=== PATIENT | female | born 1925 | race Caucasian/White ===

== ENCOUNTER → 2016-04-17 | Outpatient (CLI) | payer OTHER | LOC: LAB 13:30 | DX: A09 Infectious gastroenteritis and colitis, unspecified (principal); I10 Essential (primary) hypertension; D47.1 Chronic myeloproliferative disease; D68.51 Activated protein C resistance; I86.8 Varicose veins of other specified sites; E03.9 Hypothyroidism, unspecified; I27.2 Other secondary pulmonary hypertension | CPT/HCPCS: 87493; 99213; G0463 ==

== ENCOUNTER → 2016-05-13 | Outpatient (CLI) | payer OTHER ==
--- NOTE | 2016-05-13 11:36 | EKG ---
[address] [address] Measurements Intervals [place] Rate: 87 P: AR: 0 QRS: 97 QRSD: 104 T: 39 QT: 379 QTc: 423 Interpretive Statements ATRIAL FIBRILLATION BORDERLINE RIGHT AXIS DEVIATION [QRS AXIS > 90] ABNORMAL RHYTHM ECG Compared to ECG 12/13/2014 14:20:17 No significant changes Electronically Signed On 05-14-16 14:08:44 MST by Lauri Calzada [id number]
[2016-05-13 12:56] LABS: BUN/CREATININE RATIO 23.33 (6-20); CALCIUM 9.4 mg/dL (8.7-10.7); CREATININE 0.9 mg/dL (0.50-1.20); MAGNESIUM 1.9 mg/dL (1.6-2.4); POTASSIUM 4.5 meq/L (3.8-5.2)
[2016-05-13 13:41] LABS: BASOPHILS # (AUTO) 0.05 10*3/UL; BASOPHILS % (AUTO) 0.6 % (0-1); HEMATOCRIT 35.5 % (37.0-47.0); HEMOGLOBIN 11.2 g/dL (12.0-16.0); IMM GRAN % (AUTO) 0.9 % (0-5); IMM GRAN# (AUTO) 0.07 10*3/UL; LYMPHOCYTES # (AUTO) 0.93 10*3/uL; MEAN CORPUSCULAR HEMOGLOBIN 25.2 PG (27-31); MEAN CORPUSCULAR HGB CONC 31.5 g/dL (33-37); MEAN PLATELET VOLUME 10.2 FL (7.4-12.2); MONOCYTES # (AUTO) 0.44 10*3/UL (0.3-0.8); MONOCYTES % (AUTO) 5.7 % (5-15); NEUTROPHILS # (AUTO) 6.02 10*3/UL; NEUTROPHILS % (AUTO) 77.8 % (50-80); RDW COEFFICIENT OF VARIATION 19.8 % (11.5-14.5); RED BLOOD COUNT 4.45 10^6/uL (4.20-5.40); WHITE BLOOD COUNT 7.74 10^3/uL (4.8-10.8)
[2016-05-13 14:24] LABS: PLATELET MORPHOLOGY COMMENT SEE COMMENTS (NORM)
== END ==
LOC: EKG 11:21
DX: I49.9 Cardiac arrhythmia, unspecified (principal); I48.91 Unspecified atrial fibrillation; I10 Essential (primary) hypertension; D47.1 Chronic myeloproliferative disease
CPT/HCPCS: 36415; 80048; 82728; 83540; 83550; 83735; 85025; 93005; 93010

== ENCOUNTER → 2016-06-10 | Outpatient (CLI) | payer OTHER | LOC: MMPC 09:00 | DX: R11.2 Nausea with vomiting, unspecified (principal); I10 Essential (primary) hypertension; D47.3 Essential (hemorrhagic) thrombocythemia; E03.9 Hypothyroidism, unspecified; I27.2 Other secondary pulmonary hypertension; D68.51 Activated protein C resistance; I48.0 Paroxysmal atrial fibrillation | CPT/HCPCS: 99213; G0463 ==

== ENCOUNTER 2016-06-15 15:32 | Emergency (ER) | payer OTHER ==
--- NOTE | 2016-06-15 15:54 | PDOC ---
Gen Adult / Medical Screen HPI - General Chief Complaint: General Medical Stated Complaint: ILL ALL OVER Date Seen by Provider: 06/15/16 Time Seen by Provider: 15:49 Source: POSITIVE: Patient Exam Limitations: POSITIVE: No limitations Nurse's Notes Reviewed & Considered: Yes - Indicators Temperature Between 95 and 101 Degrees: Yes Respirations Between 12 and 20: Yes Blood Pressure Between 100-165 (sys) and 60-100 (george): No (172\125) Pulse Range Between 60-105 (100 for age > 60 years): No (115) Severe Pain (Greater than 5/10 Reported): No Chest or Abdominal Pain: No Inability to Walk: No Pt Reports Active High Risk Cond. (TB/Hepatitis/HIV/Chemo): No Abnormal Mental Status: No - History of Present Illness Initial Comments: This pleasant 89-year-old comes in today with complaints of myalgias, sore throat, stuffy nose, and upset stomach with nausea. She denies any nocturia or dysuria. She does have a headache, abdominal discomfort, denies chest pain shortness of breath no cough. Body Location Affected: REPORTS: Chest, Abdomen Timing: REPORTS: Constant Duration: >24 hours Similar Symptoms Previously: No Recent Care Received: REPORTS: Denies Any Prior Injuries Related to Current Complaint?: No - Patient Home Medications Home Medications: Home Medications Vit A/Vit C/Vit E/Zinc/Copper [Icaps Areds Softgel] 1 each PO BID cap 02/10/13 Estradiol 1 tab PO QD #90 tab 06/08/15 Pantoprazole Sodium [Protonix] 1 tab PO QD PRN #90 tab 07/31/15 Metoprolol Succinate 1 tab PO DAILY #90 tab 08/09/15 Amlodipine Besylate 1 tab PO DAILY #90 tab 10/02/15 Furosemide [Lasix] 1 tab PO 4XW #30 tab 02/18/16 Potassium Chloride 1 tab PO 4XW #30 tab 03/04/16 Tramadol HCl 0.5 tab PO Q4-6H PRN #45 tab 03/11/16 Levothyroxine Sodium 1 tab PO QD #90 tab 05/12/16 Ferrous Sulfate [High Potency Iron] 1 tab PO QOD #30 tab 06/10/16 - Patient Allergies Allergies/Adverse Reactions: Allergies Allergy/AdvReac Type Severity Reaction Status Date / Time ibuprofen Allergy Intermediate ASTHMATIC Verified 06/15/16 16:12 SYMPTOMS metoclopramide HCl Allergy Intermediate SUICIDAL Verified 06/15/16 16:12 [From Reglan] IDEATIONS Past Medical History - heen HEENT History: Cataracts Cardiovascular History: Hypertension, Arrhythmia, Hyperlipidemia Respiratory History: Denies History Gastrointestinal History: GERD, Peptic Ulcer Disease Genitourinary History: Denies History Endocrine History: Denies History Musculoskeletal History: Arthritis, Osteoporosis Neurological History: TIA Blood Disorders: Denies History Psychiatric History: Denies History History of Sexually Transmitted Diseases: No Cancer History: Denies History History of MDRO: No History of Other Communicable Diseases: No Alcohol Use: None Substance Use Type: None Previous Surgical History: Yes Anesthesia Reactions: No Malignant Hyperthermia: No Significant Family History: No pertinent family hx ROS - Limitations ROS Limitations: No Limitations Constitution: REPORTS: Chills, Fever Cardiovascular: REPORTS: Denies Cardiac Symptoms Respiratory: REPORTS: Shortness Of Breath Neurological: REPORTS: Headache Gastrointestinal: REPORTS: Abdominal Pain, Nausea Endocrine: REPORTS: Fatigue Musculoskeletal: REPORTS: Muscle Aches Genitourinary: REPORTS: Denies Symptoms Eyes: REPORTS: Denies Symptoms ENT: REPORTS: Denies Symptoms Skin: REPORTS: Denies Skin Symptoms Lympathic: REPORTS: Denies Lympathic Symptoms Immunologic: POSITIVE: Denies Symptoms Psychiatric: POSITIVE: Denies Psych Symptoms Gen Adult/Medical Screen Exam - General Appearance General Appearance: POSITIVE: Alert, Cooperative, No Acute Distress, No Evidence of Trauma - HEENT HEENT: POSITIVE: Head Inspection Nml, Eyes Inspection Nml, Ears Inspection Nml, Nose Inspection Nml, Oral/Dental Inspect. Nml, Pharynx Inspect. Nml, PERRL, EOMI - Pupils Pupil Size: 4 mm: Bilateral - Neck Neck: POSITIVE: Normal Inspection - Respiratory Respiratory: POSITIVE: No Respiratory Distress, Breath Sounds Normal, Chest Non- Tender - Cardiovascular Cardiovascular: POSITIVE: No Murmur, No Gallop, PMI Normal, Tachycardia, Murmur Murmur: Systolic: Grade 3 - Abdomen Abdomen: Soft: (All Quadrants), Normal Bowel Sounds: (All Quadrants), Denies Tenderness: (All Quadrants) - Back Back: POSITIVE: Normal Inspection - Neurological / Psychological Mental Status: POSITIVE: Mood Normal, Affect Normal Orientation: POSITIVE: Oriented x 3 - Skin Skin: POSITIVE: Normal Color, Warm, Dry, No Rash - Extremities Extremity: Non-Tender: (All Extremities), Normal ROM: (All Extremities), Normal Inspection: (All Extremities) Procedures - Laceration/Wound Repair Did patient have a laceration repair: No Gen Adlt/Medical Scrn Progress - Results Reviewed by me Xrays/CTs/US Reviewed by me: Yes Lab Results Reviewed: Yes Lab Results:: Laboratory Results 06/15/16 06/15/16 Range/Units 15:44 16:02 WBC 12.83 H (4.8-10.8) 10^3/uL RBC 4.83 (4.20-5.40) 10^6/uL Hgb 12.4 (12.0-16.0) g/dL Hct 37.5 (37.0-47.0) % MCV 77.6 L (81-99) FL MCH 25.7 L (27-31) PG MCHC 33.1 (33-37) g/dL RDW Std Deviation 54.8 H (39-50) fL RDW Coeff of Min 19.8 H (11.5-14.5) % Plt Count 553 H (140-350) 10*3/uL MPV 10.0 (7.4-12.2) FL Neutrophils % (Manual) 82 H (50-80) % Band Neutrophils % 6 (0-10) % Lymphocytes % (Manual) 7 L (10-50) % Monocytes % (Manual) 4 (0-12) % Eosinophils % (Manual) 1 (0-8) % Basophils % (Manual) 0 (0-1) % Metamyelocytes % Not Reportable Myelocytes % Not Reportable Promyelocytes % Not Reportable Blast Cells Not Reportable WBC Morphology Comment Normal morphology (NORM) Plt Morphology Comment See comments (NORM) RBC Morph Comment Normal morphology (NORM) Sodium 135 (135-145) meq/L Potassium 4.2 (3.8-5.2) meq/L Chloride 97 L (98-112) meq/L Carbon Dioxide 27 (23-33) meq/L Anion Gap 11 (5-20) BUN 17 (7-22) mg/dL Creatinine 0.7 (0.50-1.20) mg/dL Estimated GFR (>60 ml/min/1.73m(2)) BUN/Creatinine Ratio 24.28 H (6-20) Glucose 101 (78-110) mg/dL Calculated Osmolality 281.0 (267-292) mOsm/kg Lactic Acid 0.9 (0.70-2.10) MMOL/L Calcium 9.8 (8.7-10.7) mg/dL Magnesium 1.7 (1.6-2.4) mg/dL Total Bilirubin 1.3 H (0.3-1.2) mg/dL AST 29 (8-39) IU/L ALT 26 (9-52) IU/L Alkaline Phosphatase 71 (38-126) IU/L Total Protein 7.2 (6.1-8.0) g/dL Albumin 4.3 (3.5-4.8) g/dL Globulin 2.9 (2.50-4.10) g/dL Albumin/Globulin Ratio 1.40 (1.3-2.0) mg/g Ur Collection Type Clean catch urine Urine Color Yellow Urine Clarity Slightly sosa (CLEAR) Urine pH 7.0 (5.0-8.5) Ur Specific [place] 1.015 (1.005-1.030) Urine Protein Trace (NEG) mg/dl Urine Glucose (UA) Negative (NEG) mg/dL Urine Ketones Trace (NEG) Urine Occult Blood Negative (NEG) Urine Nitrate Negative (NEG) Urine Bilirubin Negative (NEG) Urine Urobilinogen 1.0 (0.2) EU/dL Ur Leukocyte Esterase Negative (NEG) Ur Culture Indicated? Culture not set EKG Interpretation:: POSITIVE: Abnormal EKG - Patient's Progress Pain Medication Addressed: POSITIVE: Other (Please Comment) (Atrial fibrillation with an RVR of 107 beats a minute.) Re-Examine Time: 17:43 Re-Examine Time:: 18:37 Status: POSITIVE: Improved MDM / ED Course: Patient was examined, an IV started, blood drawn and sent to lab for studies, chest x-ray was obtained, EKG was obtained. Findings: White count is elevated, EKG shows an atrial fibrillation with rapid ventricular rate of 107 beats a minute per my interpretation area. Influenza is negative. Oxygenation drops and to the 87% range with ambulation and no oxygen. Oxygenation improves rapidly on 2 L nasal cannula. Chest x-ray shows suspicious early and left lung base. Assessment: Early pneumonia. Plan discharge home on azithromycin 500 g daily 2 days. Continue with her home oxygen. She is to return here to emergency department if she runs fevers, developed increasing shortness of breath. - Consult Counseled: POSITIVE: Patient, Family, RE: Lab Results, RE: Radiology Results, RE : DX, RE: Need for F/U Patient Care Time - Estimated PCT Patient Care Time (In Minutes): 30 Vital Signs - Recent Vital Signs Vital Signs: Vital Signs (Last 8 hours) Temp Pulse Resp BP Pulse Ox 06/15/16 18:15 99.2 F 110 H 20 143/64 93 06/15/16 17:31 115 H 155/78 81 06/15/16 15:34 99.6 F 115 H 20 172/125 88 - VS Reviewed Vital Signs Reviewed: Yes Discharge Clinical Impression: Pneumonia Discharge Disposition: Discharged to Home Condition: Stable Patient Instructions Given at Discharge: Pneumonia (ED)
[2016-06-15] MEDS ORDERED: Sodium Chloride 0.9% 1,000 ML PRIMARY IV ONE (15:56)
[2016-06-15] MEDS ORDERED: KETOROLAC 15 MG/1 ML VIAL IVP ONE (15:56)
[2016-06-15] MEDS ORDERED: ONDANSETRON 4 MG/2 ML VIAL IVP ONE (15:56)
[2016-06-15 16:21] LABS: HEMATOCRIT 37.5 % (37.0-47.0); HEMOGLOBIN 12.4 g/dL (12.0-16.0); MEAN CORPUSCULAR HEMOGLOBIN 25.7 PG (27-31); MEAN CORPUSCULAR HGB CONC 33.1 g/dL (33-37); RDW COEFFICIENT OF VARIATION 19.8 % (11.5-14.5); RED BLOOD COUNT 4.83 10^6/uL (4.20-5.40); WHITE BLOOD COUNT 12.83 10^3/uL (4.8-10.8)
[2016-06-15 16:37] LABS: BILIRUBIN,TOTAL 1.3 mg/dL (0.3-1.2); BUN/CREATININE RATIO 24.28 (6-20); CALCIUM 9.8 mg/dL (8.7-10.7); CREATININE 0.7 mg/dL (0.50-1.20); LACTATE 0.9 MMOL/L (0.70-2.10); MAGNESIUM 1.7 mg/dL (1.6-2.4); POTASSIUM 4.2 meq/L (3.8-5.2); TOTAL PROTEIN 7.2 g/dL (6.1-8.0)
[2016-06-15 16:41] LABS: BAND NEUTROPHILS % 6 % (0-10); BASOPHILS % (MANUAL) 0 % (0-1); EOSINOPHILS % (MANUAL) 1 % (0-8); LYMPHOCYTES % (MANUAL) 7 % (10-50); MONOCYTES % (MANUAL) 4 % (0-12); NEUTROPHILS % (MANUAL) 82 % (50-80); PLATELET MORPHOLOGY COMMENT SEE COMMENTS (NORM)
[2016-06-15 16:51] LABS: BILIRUBIN,URINE NEGATIVE (NEG); CLARITY,URINE Slightly Clo (CLEAR); GLUCOSE, URINE (UA) NEGATIVE (NEG); LEUKOCYTE ESTERASE ,URINE NEGATIVE (NEG); NITRATE,URINE NEGATIVE (NEG); OCCULT BLOOD,URINE NEGATIVE (NEG); PROTEIN,URINE TRACE mg/dl (NEG)
[2016-06-15 16:59] LABS: URINE SAMPLE TYPE CLEAN CATCH URINE
[2016-06-15] MEDS ORDERED: ALBUTEROL SULFATE 2.5 MG/3 ML NEB ONE (17:28)
--- NOTE | 2016-06-15 17:40 | EKG ---
[place] [address] [place] [address] Measurements Intervals [place] Rate: 107 P: MD: 0 QRS: 96 QRSD: 96 T: 59 QT: 346 QTc: 409 Interpretive Statements ATRIAL FIBRILLATION WITH RAPID VENTRICULAR RESPONSE BORDERLINE RIGHT AXIS DEVIATION LOW QRS VOLTAGE IN EXTREMITY LEADS ABNORMAL RHYTHM ECG Compared to ECG 05/13/2016 11:39:39 Low QRS voltage now present Electronically Signed On 06-16-16 10:25:46 MST by Lauri Calzada [id number]
--- NOTE | 2016-06-15 17:59 | DI ---
HISTORY: Fever. COMPARISON: None available. FINDINGS: Borderline cardiomegaly is noted with atheromatous changes of the dorsal aorta. There yefri ears to be mild pulmonary vascular congestion in both lower lung bull with pleural effusion and/or pleural thickening in both lung bases and suspicious early infiltrate in the left lung base. The jessie g bull are otherwise essentially clear. IMPRESSION: 1. Borderline cardiomegaly is noted with atheromatous changes of the dorsal aorta. 2. There appears to be mild pulmonary vascular congestion in both lower lung bull with pleural effu audrey and/or pleural thickening in both lung bases and suspicious early infiltrate in the left lung ba se. Clinical correlation is requested. NOTIFICATION: The above findings and recommendations were phoned to Beth Pfeiffer in the ER Depar tment on 06/15/2016 at 08:20 PM EST.
[2016-06-15] MEDS ORDERED: AZITHROMYCIN 250 MG TABLET PO ONE (18:01)
[2016-06-15 18:20] VITALS: RESP 20; TEMP 99.2
== END 2016-06-15 18:47 | disposition home or self-care (01) ==
LOC: ER 15:32
DX: J18.9 Pneumonia, unspecified organism (principal); R10.84 Generalized abdominal pain; R50.9 Fever, unspecified; R11.0 Nausea; R06.02 Shortness of breath
CPT/HCPCS: 36415; 71020; 80053; 81003; 83605; 83735; 84443; 84481; 85007; 87040; 87802; 87804; 93005; 93010; 94640; 96374; 96375; 99284; J1885; J2405; J7030

== ENCOUNTER 2016-06-19 14:03 | Inpatient (IN) | payer OTHER ==
[2016-06-19] MEDS ORDERED: ONDANSETRON 4 MG/2 ML VIAL IVP PRN (14:54)
[2016-06-19] MEDS ORDERED: LIDOCAINE W/ SODIUM BICARB 0.5 ML SYR SUBD PRN (14:54)
[2016-06-19] MEDS ORDERED: HYDROcodone-APAP 5 MG -325 MG TABLET PO PRN (14:54)
[2016-06-19 14:57] LABS: HEMATOCRIT 38.6 % (37.0-47.0); HEMOGLOBIN 12.6 g/dL (12.0-16.0); MEAN CORPUSCULAR HEMOGLOBIN 25.3 PG (27-31); MEAN CORPUSCULAR HGB CONC 32.6 g/dL (33-37); MEAN PLATELET VOLUME 9.7 FL (7.4-12.2); RED BLOOD COUNT 4.98 10^6/uL (4.20-5.40)
[2016-06-19 15:07] LABS: CALCIUM 9.4 mg/dL (8.7-10.7); MAGNESIUM 1.7 mg/dL (1.6-2.4); SERUM ALBUMIN 4.4 g/dL (3.5-4.8)
--- NOTE | 2016-06-19 15:45 | EKG ---
[address] [address] Measurements Intervals [place] Rate: 106 P: CT: 0 QRS: -1 QRSD: 98 T: 53 QT: 337 QTc: 399 Interpretive Statements ATRIAL FIBRILLATION WITH RAPID VENTRICULAR RESPONSE ABNORMAL RHYTHM ECG Compared to ECG 06/15/2016 17:37:18 No significant changes Electronically Signed On 06-19-16 17:11:57 MST by Lauri Calzada [id number]
[2016-06-19] MEDS ORDERED: Magnesium Sulfate 2gm (Premix) 2 GM in Premix 1 BAG IV ONE (16:38)
--- NOTE | 2016-06-19 16:43 | PDOC ---
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 Was feeling short of breath with generalized malaise last Thursday she was seen in the ER diagnosed with possible left lower lobe pneumonia was given Zithromax and Tamiflu. Patient did not improve continue to be shortness have shortness of breath went to see her primary care physician today after he saw her I received a call from Dr. Ma asking me to possibly do a direct admit for this patient. She has not been feeling well for 2 or 3 days she has shortness of breath her abdomen is distended feels very weak all heart rates and elevated. She was found to be in A. fib RVR CT scan of her abdomen and pelvis and chest revealed the 2 moderate to large bilateral pleural effusions and right heart failure with a large right heart. I did look up an old echo was 2 years ago and she has severe pulmonary hypertension as well as diastolic dysfunction. Past Medical History Medical History: Osteoporosis. Benign hypertension. Essential thrombocythemia. Factor V Leiden mutation. Raynaud's syndrome. Transient ischemic attack. Age-related macular degeneration. Gastroesophageal reflux disease. Laryngitis due to reflux. MIGRAINE AURA NO HEADACHE. Family History. Last reviewed 04/12/16 LILY FOY Family History: Reviewed an Not Pertinent (Essential hypertension (brother, poorly controlled, and likely cause of his recurrent CVAs) Depression (brother committed suicide) Cerebrovascular accident (brother had multiple) Pancreatic cancer (brother, d. 61.)) Tobacco Use: Never Smoker Substance Use Type: None Alcohol Use: None Medication / Allergies Home Medications: Home Medications Medication Instructions Recorded Confirmed Type Vit A/Vit C/Vit E/Zinc/Copper 1 each PO BID cap 02/10/13 06/15/16 History [Icaps Areds Softgel] Estradiol 1 tab PO QD #90 tab 06/08/15 06/15/16 Clinic Pantoprazole Sodium [Protonix] 1 tab PO QD PRN #90 tab 07/31/15 06/15/16 Clinic Metoprolol Succinate 1 tab PO DAILY #90 tab 08/09/15 06/15/16 Clinic Amlodipine Besylate 1 tab PO DAILY #90 tab 10/02/15 06/15/16 Clinic Furosemide [Lasix] 1 tab PO 4XW #30 tab 02/18/16 06/15/16 [facility] Potassium Chloride 1 tab PO 4XW #30 tab 03/04/16 06/15/16 Clinic Tramadol HCl 0.5 tab PO Q4-6H PRN #45 tab 03/11/16 06/15/16 [facility] Levothyroxine Sodium 1 tab PO QD #90 tab 05/12/16 06/15/16 [facility] Ferrous Sulfate [High Potency Iron] 1 tab PO QOD #30 tab 06/10/16 06/15/16 [facility] Allergies/Adverse Reactions: Allergies Allergy/AdvReac Type Severity Reaction Status Date / Time ibuprofen Allergy Intermediate ASTHMATIC Unverified 06/19/16 15:04 SYMPTOMS metoclopramide HCl Allergy Intermediate SUICIDAL Unverified 06/19/16 15:04 [From Reglan] IDEATIONS Review of Systems - Review of Systems All Systems: Reviewed & No Additional Complaints Except as Stated - Respiratory Respiratory: REPORTS: Cough, Dyspnea At Rest, Dyspnea with Exertion - Cardiovascular Cardiovascular: REPORTS: Palpitations, Paroxysmal Nocturnal Dyspnea - Gastrointestinal Gastrointestinal / Abdominal: REPORTS: Bloating - Genitourinary Genitourinary: REPORTS: Negative System Review - Musculoskeletal Musculoskeletal: DENIES: Negative System Review, Back Pain, Neck Pain, Swelling , Calf Pain, Muscle Pain, Cramping, Joint Pain - Hands, Joint Pain - Elbows, Joint Pain - Shoulders, Joint Pain - Hips, Joint Pain - Knees, Joint Pain - Feet , AM Stiffness, Other, See HPI - Neurological Neurologic: REPORTS: Weakness. DENIES: Numbness/Paresthesia, Tremors, Dizziness , Confusion Exam - Vitals Vital Signs: Vital Signs Temperature 97.9 F Temperature Source Oral Pulse Rate [Apical] 112 Pulse Rate [Pulse Oximeter] 110 Respiratory Rate 24 Blood Pressure [Right Arm] 152/74 Pulse Ox 92 Oxygen Delivery Method Room Air Height 5 ft 2 in Weight 53.615 kg - General General Appearance: POSITIVE: No Acute Distress, Cooperative - Head Head Exam: POSITIVE: Normal Inspection, Normocephalic, Atraumatic - Eye Eye Exam: POSITIVE: Normal Appearance, PERRL, EOMI - ENT ENT Exam: POSITIVE: Normal Exam - Neck Neck Exam: POSITIVE: Normal Inspection, Full ROM, No Tenderness - Respiratory Additional Respiratory Exam Details: Left lower lobe bronchi decreased breath sounds bilaterally - Cardiovascular Cardiovascular Exam: POSITIVE: Irregular Rhythm Additional Cardiovascular Details: Gen. fibrillation irregularly irregular - GI/Abdominal GI/Abdominal Exam: POSITIVE: Soft, Distended - Extremities Extremities Exam: POSITIVE: Normal Capillary Refill, No Clubbing Present, No Edema Present - Neurological Neurological Exam: POSITIVE: Alert, Oriented x 3, CN II-XII Intact, No Facial Droop, Speech Intact / Clear - Psychiatric Psychiatric Exam: POSITIVE: Normal Affect, Normal Mood Results - Labs CBC and BMP: 06/19/16 14:52 06/19/16 14:52 Labs - Last 24 Hours: Laboratory Results 06/19/16 Range/Units 14:52 WBC 11.19 H (4.8-10.8) 10^3/uL RBC 4.98 (4.20-5.40) 10^6/uL Hgb 12.6 (12.0-16.0) g/dL Hct 38.6 (37.0-47.0) % MCV 77.5 L (81-99) FL MCH 25.3 L (27-31) PG MCHC 32.6 L (33-37) g/dL RDW Std Deviation 55.6 H (39-50) fL RDW Coeff of Min 19.9 H (11.5-14.5) % Plt Count 640 H (140-350) 10*3/uL MPV 9.7 (7.4-12.2) FL Sodium 135 (135-145) meq/L Potassium 3.6 L (3.8-5.2) meq/L Chloride 96 L (98-112) meq/L Carbon Dioxide 29 (23-33) meq/L Anion Gap 10 (5-20) BUN 16 (7-22) mg/dL Creatinine 0.8 (0.50-1.20) mg/dL Estimated GFR (>60 ml/min/1.73m(2)) BUN/Creatinine Ratio 20.00 (6-20) Glucose 108 (78-110) mg/dL Calculated Osmolality 281.0 (267-292) mOsm/kg Calcium 9.4 (8.7-10.7) mg/dL Magnesium 1.7 (1.6-2.4) mg/dL Total Bilirubin 0.7 (0.3-1.2) mg/dL AST 31 (8-39) IU/L ALT 26 (9-52) IU/L Alkaline Phosphatase 83 (38-126) IU/L Troponin I 0.010 (< 0.040) ng/mL Total Protein 7.5 (6.1-8.0) g/dL Albumin 4.4 (3.5-4.8) g/dL Globulin 3.1 (2.50-4.10) g/dL Albumin/Globulin Ratio 1.40 (1.3-2.0) mg/g Assessment and Plan - Patient Problems (1) Atrial fibrillation Current Visit: Yes Status: Acute Comment: I will start Toprol XL 50 mg I will also anticoagulate with the by mouth blood thinners I discussed different medications we will do Eliquis she agrees I explained that the risk of stroke without it (2) Elevated WBC count Current Visit: Yes Status: Acute Comment: Secondary to left lower lobe pneumonia start Levaquin (3) Low mean corpuscular volume (MCV) Current Visit: Yes Status: Acute Comment: Check iron panel (4) Hypokalemia Current Visit: Yes Status: Acute Comment: Replace (5) Pulmonary HTN Current Visit: Yes Status: Acute Comment: On echo and CT scan with bilateral pleural effusions (6) Right heart failure Current Visit: Yes Status: Acute Comment: IV Lasix 40 twice a day and start Amaral for accurate measurements
[2016-06-19] MEDS: Levofloxacin 750mg (Premix) 750 MG in Dextrose 1 BAG IV SCH (17:07)
--- NOTE | 2016-06-19 17:48 | DI ---
CT CHEST SCAN WITH IV CONTRAST, 06/19/2016 2:33 PM : Clinical History: Dyspnea. Previous Exam: None at this facility. Scans are performed from the base of the neck to the lower lung bases with IV contrast. 65 ml of Isov ue 300 was injected IV. Sagittal and coronal images using non MIPS and MIPS technique are generated. The base of the neck and thoracic inlet are normal. There are no abnormal axillary, supraclavicular, mediastinal, or hilar nodes. There is dilatation of the right atrium and the right ventricle and the right ventricle is actually larger than the left ventricle. There is thinning of the myocardium invol ving the anterior portion of the septum distally and the apicoseptal, the apicolateral, and the anter oapical segments. The left intraocular apex has a bulbous configuration and there is low-density tiss ue within the myocardium associated with thinning. Toward the base, the left ventricular myocardium i s thickened. The ascending and descending aorta are normal. There is marked pulmonary arterial hypert ension without evidence of pulmonary emboli or pulmonary infarction. There is left lower lobe atelect asis, but pneumonia cannot entirely be excluded. There are moderate bilateral pleural effusions with multiple calcifications in both lungs ranging up to 10 mm in diameter as well as calcifications in th e mediastinum and both tima as well as in the spleen. These calcifications are consistent with previo us exposure to either TB or histoplasmosis. READIN. There is right heart dilatation with marked pulmonary arterial hypertension and bilateral moderat e pleural effusions. The left ventricle is normal in size but there are are changes suggesting a prev ious myocardial infarction involving the distal third of the LAD. The proximal half of the left ventr icular myocardium is thickened suggesting left ventricular hypertrophy. 2. There is left lower lobe atelectasis versus pneumonia. 3. Pulmonary, mediastinal, and hilar calcifications with calcifications of the spleen indicating adama or exposure to either TB or histoplasmosis.
--- NOTE | 2016-06-19 18:00 | DI ---
CT ABDOMEN SCAN WITH IV CONTRAST, 06/19/2016 2:33 PM : Clinical History: Abdominal pain. This history was provided to me by the attending hospitalist. Previous Exam: 10/26/2008. Scans are performed from the lower lung bases through the liver and kidneys with IV contrast. This is the same bolus of contrast used for the CT scan of the chest. There are bilateral pleural effusions, slightly larger on the left side than the right. There is left lower lobe atelectasis versus pneumonia. The liver is normal. The gallbladder is grossly normal. Bot h adrenal glands and pancreas are normal. There is moderate to moderately severe splenomegaly without evidence of splenic masses. There are numerous punctate calcifications within the spleen indicating previous exposure to either TB or histoplasmosis. Both kidneys are normal in size, shape, position an d contour. There is no hydronephrosis or hydroureter. No renal or ureteral calculi are present. There are no abnormal retrocrural or periaortic nodes. No ascites is present. READIN. Moderate to moderately severe splenomegaly with punctate calcifications indicating prior exposure to either TB or histoplasmosis. 2. The remainder of the exam is normal. CT PELVIS SCAN WITH IV CONTRAST, 06/19/2016 2:33 PM: Clinical History: See above. Previous Exam: 10/26/2008. Scans are performed from just superior to the umbilicus to the symphysis pubis with IV contrast. This is the same bolus of contrast used for the CT scans of the abdomen. Scans through the lower abdomen and pelvis show no masses or abnormal fluid collections. There is no adenopathy. The appendix is not visualized but there is no inflammatory mass either in the cecal tip or in the right lower quadrant. The small bowel, terminal ileum, and ileocecal valve are normal. The colon is also normal. There are no hernias. The patient is status post hysterectomy and bilateral cheri pingo-oophorectomy. READING: Normal CT scan of the pelvis.
[2016-06-19] MEDS ORDERED: FUROSEMIDE 10 MG/1 ML - 4 ML ONE (18:26)
[2016-06-19] MEDS: FUROSEMIDE 10 MG/1 ML - 2 ML VIAL IVP SCH (18:28)
[2016-06-19] MEDS: FUROSEMIDE 10 MG/1 ML - 4 ML IVP SCH (18:39)
[2016-06-19] MEDS: BISACODYL 5 MG TABLET PO PRN (21:25)
[2016-06-19] MEDS: Apixaban 5 MG TABLET PO SCH (21:25)
[2016-06-19] MEDS: traMADol 50 MG TABLET PO PRN (22:27)
[2016-06-19] MEDS ORDERED: Pantoprazole Inj 40 MG in Normal Saline Flush 10 ML IVP ONE (22:58)
[2016-06-19] MEDS: ONDANSETRON 4 MG/2 ML VIAL IVP PRN (23:11)
[2016-06-19] MEDS: NORMAL SALINE 10 ML SYRINGE FLUSH IVP PRN (23:12)
[2016-06-19] MEDS: LORazepam 2 MG/1 ML VIAL IVP PRN (23:13)
[2016-06-20 06:18] LABS: BASOPHILS # (AUTO) 0.12 10*3/UL; BASOPHILS % (AUTO) 1.3 % (0-1); EOSINOPHILS # (AUTO) 0.23 10*3/UL; EOSINOPHILS % (AUTO) 2.5 % (0-8); HEMATOCRIT 33.9 % (37.0-47.0); HEMOGLOBIN 11.2 g/dL (12.0-16.0); LYMPHOCYTES # (AUTO) 1.13 10*3/uL; MEAN CORPUSCULAR HEMOGLOBIN 26.1 PG (27-31); MEAN PLATELET VOLUME 9.9 FL (7.4-12.2); MONOCYTES # (AUTO) 0.79 10*3/UL (0.3-0.8); MONOCYTES % (AUTO) 8.6 % (5-15); NEUTROPHILS # (AUTO) 6.77 10*3/UL; NEUTROPHILS % (AUTO) 73.9 % (50-80); RED BLOOD COUNT 4.29 10^6/uL (4.20-5.40)
[2016-06-20 06:28] LABS: PLATELET MORPHOLOGY COMMENT NORMAL MORPHOLOGY (NORM); RBC MORPHOLOGY COMMENT NORMAL MORPHOLOGY (NORM); WBC MORPHOLOGY COMMENT NORMAL MORPHOLOGY (NORM)
[2016-06-20 06:30] LABS: BUN/CREATININE RATIO 18.57 (6-20); CALCIUM 8.2 mg/dL (8.7-10.7); SERUM ALBUMIN 3.4 g/dL (3.5-4.8)
[2016-06-20] MEDS: FUROSEMIDE 10 MG/1 ML - 4 ML IVP SCH ×2 (06:48→12:26)
[2016-06-20] MEDS ORDERED: FUROSEMIDE 10 MG/1 ML - 4 ML IVP SCH (07:00)
[2016-06-20] MEDS ORDERED: METOPROLOL SUCCINATE 50 MG SR 24H TABLET PO SCH (09:00)
[2016-06-20] MEDS: METOPROLOL SUCCINATE 50 MG SR 24H TABLET PO SCH (09:22)
[2016-06-20] MEDS: Apixaban 5 MG TABLET PO SCH ×2 (09:23→20:47)
[2016-06-20] MEDS: Pantoprazole Inj 40 MG in Normal Saline Flush 10 ML IVP SCH (09:23)
--- NOTE | 2016-06-20 10:51 | PDOC(PROG) ---
Interval History: Patient is doing much better today less short of breath she had a good night's sleep last night did have some blood in the [place] most likely secondary to her blood tear that she received last night Objective : Data - Labs CBC and BMP: 06/20/16 06:10 06/20/16 06:10 Labs - Last 24 Hours: Laboratory Results 06/19/16 06/19/16 06/20/16 Range/Units 14:52 16:49 06:10 WBC 11.19 H 9.17 (4.8-10.8) 10^3/uL RBC 4.98 4.29 (4.20-5.40) 10^6/uL Hgb 12.6 11.2 L (12.0-16.0) g/dL Hct 38.6 33.9 L (37.0-47.0) % MCV 77.5 L 79.0 L (81-99) FL MCH 25.3 L 26.1 L (27-31) PG MCHC 32.6 L 33.0 (33-37) g/dL RDW Std Deviation 55.6 H 55.2 H (39-50) fL RDW Coeff of Min 19.9 H 19.7 H (11.5-14.5) % Plt Count 640 H 462 H (140-350) 10*3/uL MPV 9.7 9.9 (7.4-12.2) FL Immature Gran % (Auto) 1.4 (0-5) % Neut % (Auto) 73.9 (50-80) % Lymph % (Auto) 12.3 (10-50) % [place] % (Auto) 8.6 (5-15) % Eos % (Auto) 2.5 (0-8) % Baso % (Auto) 1.3 H (0-1) % Immature Gran # (Auto) 0.13 10*3/UL Neut # (Auto) 6.77 10*3/UL Lymph # (Auto) 1.13 10*3/uL [place] # (Auto) 0.79 (0.3-0.8) 10*3/UL Eos # (Auto) 0.23 10*3/UL Baso # (Auto) 0.12 10*3/UL WBC Morphology Comment Normal morphology (NORM) Plt Morphology Comment Normal morphology (NORM) RBC Morph Comment Normal morphology (NORM) Sodium 135 134 L (135-145) meq/L Potassium 3.6 L 4.1 (3.8-5.2) meq/L Chloride 96 L 98 (98-112) meq/L Carbon Dioxide 29 29 (23-33) meq/L Anion Gap 10 7 (5-20) BUN 16 13 (7-22) mg/dL Creatinine 0.8 0.7 (0.50-1.20) mg/dL Estimated GFR (>60 ml/min/1.73m(2)) BUN/Creatinine Ratio 20.00 18.57 (6-20) Glucose 108 83 (78-110) mg/dL Calculated Osmolality 281.0 276.0 (267-292) mOsm/kg Calcium 9.4 8.2 L (8.7-10.7) mg/dL Magnesium 1.7 (1.6-2.4) mg/dL Total Bilirubin 0.7 0.6 (0.3-1.2) mg/dL AST 31 24 (8-39) IU/L ALT 26 25 (9-52) IU/L Alkaline Phosphatase 83 67 (38-126) IU/L Troponin I 0.010 (< 0.040) ng/mL NT-Pro-B Natriuret Pep 3140 H (0-450) PG/ML Total Protein 7.5 6.0 L (6.1-8.0) g/dL Albumin 4.4 3.4 L (3.5-4.8) g/dL Globulin 3.1 2.6 (2.50-4.10) g/dL Albumin/Globulin Ratio 1.40 1.30 (1.3-2.0) mg/g TSH 2.74 (0.2700-4.2000) uIU/mL Objective : Exam - General General Appearance: Cooperative - Neck Neck Exam: Normal Inspection, Full ROM - Respiratory Respiratory Exam: Clear to Auscultation - Bilaterally, Breathing Non Labored, Normal To Percussion - Cardiovascular Cardiovascular Exam: RRR, No Murmur, No Clicks, No Gallops, No Rubs - GI/Abdominal GI/Abdominal Exam: Non Tender, Non Distended, Soft - Extremities Extremities Exam: Normal Inspection, No Clubbing Present, No Edema Present Assessment and Plan - Patient Problems (1) Atrial fibrillation Current Visit: Yes Status: Acute Comment: Continue beta keren rate controlled at this time (2) Elevated WBC count Current Visit: Yes Status: Acute Comment: Improved normalized most likely from her pneumonia (3) Low mean corpuscular volume (MCV) Current Visit: Yes Status: Acute Comment: Check iron levels and B12 (4) Hypokalemia Current Visit: Yes Status: Acute Comment: Replace (5) Pulmonary HTN Current Visit: Yes Status: Acute Comment: On echo 2 years ago echo was repeated this morning (6) Right heart failure Current Visit: Yes Status: Acute Comment: Continue IV Lasix with diuresis so far patient is improving (7) Pneumonia Current Visit: No Status: Acute Comment: IV Levaquin
[2016-06-20] MEDS: Levofloxacin 750mg (Premix) 750 MG in Dextrose 1 BAG IV SCH (16:01)
[2016-06-20] MEDS: LORazepam 2 MG/1 ML VIAL IVP PRN (20:47)
[2016-06-21 05:38] LABS: BASOPHILS # (AUTO) 0.07 10*3/UL; BASOPHILS % (AUTO) 0.7 % (0-1); EOSINOPHILS # (AUTO) 0.22 10*3/UL; EOSINOPHILS % (AUTO) 2.2 % (0-8); HEMATOCRIT 34.7 % (37.0-47.0); HEMOGLOBIN 11.4 g/dL (12.0-16.0); LYMPHOCYTES # (AUTO) 1.46 10*3/uL; MEAN CORPUSCULAR HEMOGLOBIN 25.5 PG (27-31); MEAN CORPUSCULAR HGB CONC 32.9 g/dL (33-37); MONOCYTES # (AUTO) 0.72 10*3/UL (0.3-0.8); MONOCYTES % (AUTO) 7.4 % (5-15); NEUTROPHILS # (AUTO) 7.14 10*3/UL; RED BLOOD COUNT 4.47 10^6/uL (4.20-5.40)
[2016-06-21 05:42] LABS: PLATELET MORPHOLOGY COMMENT NORMAL MORPHOLOGY (NORM); RBC MORPHOLOGY COMMENT NORMAL MORPHOLOGY (NORM); WBC MORPHOLOGY COMMENT NORMAL MORPHOLOGY (NORM)
[2016-06-21 05:47] LABS: BUN/CREATININE RATIO 22.5 (6-20); CALCIUM 8.1 mg/dL (8.7-10.7); SERUM ALBUMIN 3.3 g/dL (3.5-4.8)
[2016-06-21] MEDS: NORMAL SALINE 10 ML SYRINGE FLUSH IVP PRN ×4 (07:11→17:45)
[2016-06-21] MEDS: FUROSEMIDE 10 MG/1 ML - 4 ML IVP SCH (07:11)
[2016-06-21] MEDS: POTASSIUM CHLORIDE 20 MEQ TAB PO SCH ×2 (09:50→17:44)
[2016-06-21] MEDS: METOPROLOL SUCCINATE 50 MG SR 24H TABLET PO SCH (09:50)
[2016-06-21] MEDS: Pantoprazole Inj 40 MG in Normal Saline Flush 10 ML IVP SCH (09:50)
[2016-06-21] MEDS: Apixaban 5 MG TABLET PO SCH ×2 (09:50→21:14)
--- NOTE | 2016-06-21 10:13 | OT.PROG ---
Progress Note Progress Note: S: pt was in her chair upon arrival. pt reported that she does not want a catheter although she is on lasix and thats why she has it. O: pt was able to don shorts with assistance for the catheter. pt ambulated down to therapy where she completed nustep for 15 minutes, 5 minutes on arm bike while standing. pt required 1 liter oxygen to stay above 90%. A: at this time pt was ready to go back to her room. pt is doing well, she is very active normally and is bored being in the hospital. P: cont to increase pts activity tolerance to return home
--- NOTE | 2016-06-21 11:14 | DI ---
HISTORY: Bilateral pleural effusions and pneumonia. TECHNIQUE: CT images were obtained through the chest without contrast. FINDINGS: There are large bilateral pleural effusions. There is an infiltrate in the right middle l obe. Calcified granulomas are identified. There are calcified hilar lymph nodes. There is cardiomegaly. Multiple peripheral vascular calcifications and coronary artery calcification s are demonstrated. IMPRESSION: 1. Large bilateral pleural effusions. 2. Single vague airspace disease in the right upper lobe may represent a resolving pneumonia. NOTIFICATION: The above findings were phoned to Katarzyna Kramer in the ER Department on 06/21/2016 at 1: 18pm EST.
--- NOTE | 2016-06-21 11:42 | DI ---
MODIFIED ESOPHAGRAM, 06/20/2016 12:19 PM : Clinical History: Dysphagia. Previous Exam: None at this facility. A "time out" session was performed to verify the patient's name and date of prior to initiating this procedure. This examination is performed in conjunction with Occupational Therapy to evaluate t he patient's swallowing function. Different texture grades of barium impregnated substances were offe red to the patient, ranging from thin liquids to thick liquids to solids. Please see the occupational therapist's report. Deglutition is normal and the esophagus strips well. There is no evidence of aspiration while swallow ing. There is no pooling of material in the pyriform sinuses. There is no Zenker's diverticulum. Spot films of the esophagus have the appearance of narrowing at the level of C5-6 that is not related to the cricopharyngeus muscle. However, when the patient does take a larger bolus of either solid or liq uids, the appearance of the esophagus in this location is normal. The remainder of the esophagus is n ormal. With the patient in the supine position, there is no spontaneous reflux noted. There is no ref lux with the water siphon test. READIN. The patient was able to swallow barium impregnated thick liquids to solid foods. Please see the O ccupational Therapist's report. 2. The esophagus is normal. There is no evidence of esophagitis, ulcerations, or strictures. There i s no hiatal hernia. No observable or demonstrable reflux was noted.
--- NOTE | 2016-06-21 12:46 | PDOC(PROG) ---
Interval History: Patient is doing a little better with her respirations and overall status she is less short of breath has no other complaints other than she wants to go back to work Objective : Data - Labs CBC and BMP: 06/21/16 04:52 06/21/16 04:52 Labs - Last 24 Hours: Laboratory Results 06/21/16 Range/Units 04:52 WBC 9.79 (4.8-10.8) 10^3/uL RBC 4.47 (4.20-5.40) 10^6/uL Hgb 11.4 L (12.0-16.0) g/dL Hct 34.7 L (37.0-47.0) % MCV 77.6 L (81-99) FL MCH 25.5 L (27-31) PG MCHC 32.9 L (33-37) g/dL RDW Std Deviation 53.0 H (39-50) fL RDW Coeff of Min 19.3 H (11.5-14.5) % Plt Count 496 H (140-350) 10*3/uL MPV 10.0 (7.4-12.2) FL Immature Gran % (Auto) 1.8 (0-5) % Neut % (Auto) 73.0 (50-80) % Lymph % (Auto) 14.9 (10-50) % [place] % (Auto) 7.4 (5-15) % Eos % (Auto) 2.2 (0-8) % Baso % (Auto) 0.7 (0-1) % Immature Gran # (Auto) 0.18 10*3/UL Neut # (Auto) 7.14 10*3/UL Lymph # (Auto) 1.46 10*3/uL [place] # (Auto) 0.72 (0.3-0.8) 10*3/UL Eos # (Auto) 0.22 10*3/UL Baso # (Auto) 0.07 10*3/UL WBC Morphology Comment Normal morphology (NORM) Plt Morphology Comment Normal morphology (NORM) RBC Morph Comment Normal morphology (NORM) Sodium 132 L (135-145) meq/L Potassium 3.7 L (3.8-5.2) meq/L Chloride 97 L (98-112) meq/L Carbon Dioxide 30 (23-33) meq/L Anion Gap 5 (5-20) BUN 18 (7-22) mg/dL Creatinine 0.8 (0.50-1.20) mg/dL Estimated GFR (>60 ml/min/1.73m(2)) BUN/Creatinine Ratio 22.50 H (6-20) Glucose 81 (78-110) mg/dL Calculated Osmolality 274.0 (267-292) mOsm/kg Calcium 8.1 L (8.7-10.7) mg/dL Magnesium 2.0 (1.6-2.4) mg/dL Total Bilirubin 0.6 (0.3-1.2) mg/dL AST 24 (8-39) IU/L ALT 23 (9-52) IU/L Alkaline Phosphatase 63 (38-126) IU/L Total Protein 5.9 L (6.1-8.0) g/dL Albumin 3.3 L (3.5-4.8) g/dL Globulin 2.6 (2.50-4.10) g/dL Albumin/Globulin Ratio 1.20 L (1.3-2.0) mg/g Objective : Exam - General General Appearance: No Acute Distress, Cooperative - Respiratory Respiratory Exam: Clear to Auscultation - Bilaterally, Decreased Breath Sounds - Cardiovascular Cardiovascular Exam: RRR, No Murmur, No Clicks, No Gallops - GI/Abdominal GI/Abdominal Exam: Non Distended, Soft Assessment and Plan - Patient Problems (1) Atrial fibrillation Current Visit: Yes Status: Acute Comment: Rate controlled at present time on Eliquis urine cleared up (2) Elevated WBC count Current Visit: Yes Status: Acute Comment: Resolved (3) Low mean corpuscular volume (MCV) Current Visit: Yes Status: Acute Comment: On iron and B12 (4) Hypokalemia Current Visit: Yes Status: Acute Comment: Replacing (5) Pulmonary HTN Current Visit: Yes Status: Acute Comment: On echo this is a cause of her right heart failure explained to this in detail to family members in the room (6) Right heart failure Current Visit: Yes Status: Acute Comment: Patient has bilateral pleural effusions we're diuresing her aggressively for her right-sided heart failure she has improved but will need more diuresis at this point we will switch to Lasix drip (7) Pneumonia Current Visit: No Status: Acute Comment: Continue antibiotics improving
[2016-06-21] MEDS: Levofloxacin 750mg (Premix) 750 MG in Dextrose 1 BAG IV SCH (17:44)
[2016-06-21] MEDS: Zolpidem Tab 5 MG TAB PO PRN (21:18)
[2016-06-21] MEDS ORDERED: CYANOCOBALAMIN 1000 MCG/1 ML VIAL IM ONE (21:58)
[2016-06-22] MEDS: POTASSIUM CHLORIDE 20 MEQ TAB PO SCH ×2 (06:40→17:53)
[2016-06-22] MEDS: Apixaban 5 MG TABLET PO SCH ×2 (08:48→20:24)
[2016-06-22] MEDS: METOPROLOL SUCCINATE 50 MG SR 24H TABLET PO SCH (08:48)
[2016-06-22] MEDS: Pantoprazole Inj 40 MG in Normal Saline Flush 10 ML IVP SCH (08:48)
[2016-06-22] MEDS ORDERED: METOPROLOL SUCCINATE 25 MG SR 24H TABLET PO SCH ×2 (09:00→17:35)
[2016-06-22 11:00] LABS: HEMATOCRIT 38.7 % (37.0-47.0); MEAN CORPUSCULAR HEMOGLOBIN 25.6 PG (27-31); MEAN CORPUSCULAR HGB CONC 33.6 g/dL (33-37); MEAN PLATELET VOLUME 10.3 FL (7.4-12.2); RED BLOOD COUNT 5.07 10^6/uL (4.20-5.40)
[2016-06-22 11:24] LABS: BUN/CREATININE RATIO 22.5 (6-20); CALCIUM 9.1 mg/dL (8.7-10.7); MAGNESIUM 1.8 mg/dL (1.6-2.4); SERUM ALBUMIN 3.9 g/dL (3.5-4.8)
[2016-06-22] MEDS ORDERED: Magnesium Sulfate 2gm (Premix) 2 GM in Premix 1 BAG IV ONE (11:30)
[2016-06-22 11:31] LABS: RBC MORPHOLOGY COMMENT NORMAL MORPHOLOGY (NORM); WBC MORPHOLOGY COMMENT NORMAL MORPHOLOGY (NORM)
[2016-06-22 11:32] LABS: BAND NEUTROPHILS % 0 % (0-10); BASOPHILS % (MANUAL) 0 % (0-1); EOSINOPHILS % (MANUAL) 1 % (0-8); LYMPHOCYTES % (MANUAL) 6 % (10-50); MONOCYTES % (MANUAL) 8 % (0-12); NEUTROPHILS % (MANUAL) 85 % (50-80); PLATELET MORPHOLOGY COMMENT SEE COMMENTS (NORM)
--- NOTE | 2016-06-22 11:35 | PT.PROG ---
Progress Note Progress Note: S: Pt. states she feels weak, but otherwise is feeling ok. O: Treatment consisted of functional activities: Pt. ambulated to therapy room, performed UBE 3/3 and nu step x 20 minutes. Pt. then ambulated back up to her room. She was receiving IV fluids during treatment time. A: Pt. overall did very well today. Did does present weak and has decreased tolerance to activities per her normal daily activities. Otherwise doing well. P: Continue per POC to increase strength and activity tolerance. Opal Boland, PHARMACEUTICAL REPRESENTATIVE
[2016-06-22] MEDS: BISACODYL 5 MG TABLET PO PRN (12:01)
--- NOTE | 2016-06-22 13:34 | PDOC(PROG) ---
Interval History: Patient says she feels much better she can breathe a lot easier overall she looks improved Objective : Data - Labs CBC and BMP: 06/22/16 10:49 06/22/16 10:49 Labs - Last 24 Hours: Laboratory Results 06/22/16 Range/Units 10:49 WBC 14.74 H (4.8-10.8) 10^3/uL RBC 5.07 (4.20-5.40) 10^6/uL Hgb 13.0 (12.0-16.0) g/dL Hct 38.7 (37.0-47.0) % MCV 76.3 L (81-99) FL MCH 25.6 L (27-31) PG MCHC 33.6 (33-37) g/dL RDW Std Deviation 52.4 H (39-50) fL RDW Coeff of Min 19.4 H (11.5-14.5) % Plt Count 671 H (140-350) 10*3/uL MPV 10.3 (7.4-12.2) FL Neutrophils % (Manual) 85 H (50-80) % Band Neutrophils % 0 (0-10) % Lymphocytes % (Manual) 6 L (10-50) % Monocytes % (Manual) 8 (0-12) % Eosinophils % (Manual) 1 (0-8) % Basophils % (Manual) 0 (0-1) % Metamyelocytes % Not Reportable Myelocytes % Not Reportable Promyelocytes % Not Reportable Blast Cells Not Reportable WBC Morphology Comment Normal morphology (NORM) Plt Morphology Comment See comments (NORM) RBC Morph Comment Normal morphology (NORM) Sodium 134 L (135-145) meq/L Potassium 4.9 D (3.8-5.2) meq/L Chloride 94 L (98-112) meq/L Carbon Dioxide 28 (23-33) meq/L Anion Gap 12 (5-20) BUN 27 H (7-22) mg/dL Creatinine 1.2 (0.50-1.20) mg/dL Estimated GFR (>60 ml/min/1.73m(2)) BUN/Creatinine Ratio 22.50 H (6-20) Glucose 95 (78-110) mg/dL Calculated Osmolality 282.0 (267-292) mOsm/kg Calcium 9.1 (8.7-10.7) mg/dL Magnesium 1.8 (1.6-2.4) mg/dL Total Bilirubin 0.6 (0.3-1.2) mg/dL AST 26 (8-39) IU/L ALT 20 (9-52) IU/L Alkaline Phosphatase 74 (38-126) IU/L Total Protein 6.6 (6.1-8.0) g/dL Albumin 3.9 (3.5-4.8) g/dL Globulin 2.7 (2.50-4.10) g/dL Albumin/Globulin Ratio 1.40 (1.3-2.0) mg/g Objective : Exam - General General Appearance: Cooperative - Head Head Exam: Normal Inspection - Eye Eye Exam: Normal Appearance - Neck Neck Exam: Normal Inspection - Respiratory Respiratory Exam: Clear to Auscultation - Bilaterally, Breathing Non Labored, Decreased Breath Sounds - Cardiovascular Cardiovascular Exam: RRR, No Murmur, No Clicks, No Gallops - Extremities Extremities Exam: No Clubbing Present, No Edema Present, No Cyanosis Present Assessment and Plan - Patient Problems (1) Atrial fibrillation Current Visit: Yes Status: Acute (2) Elevated WBC count Current Visit: Yes Status: Acute (3) Low mean corpuscular volume (MCV) Current Visit: Yes Status: Acute (4) Hypokalemia Current Visit: Yes Status: Acute (5) Pulmonary HTN Current Visit: Yes Status: Acute (6) Right heart failure Current Visit: Yes Status: Acute (7) Pneumonia Current Visit: No Status: Acute - Assessment / Plan Additional Assessment/Plan Details: #1 A. fib RVRrate control we have started Toprol XL initially 50-75 today I will increase this to 100 daily we'll see if her heart rate can be below 100 she also on Eliquis. #2 severe pulmonary hypertension and right-sided heart failure good diuresis with IV Lasix drip about 8 pounds down today there is a little bump on the BUN I will stop the Lasix drip and transition to oral Lasix we will DC Amaral catheter as well #3 moderate bilateral pulmonary effusions we'll repeat x-ray tomorrow to see if these have improved #4 left lower lobe pneumonia on Levaquin 750 daily these have improved today for some reason we have a bump in her white count which I don't have an etiology for #5 thrombocytosis she sees a Dr. Bentley hematology for this also her spleen is enlarged most likely secondary to this #6 iron deficiency anemia patient is on iron and B12 which I started Patient had CT scan of her chest abdomen and pelvis as well
[2016-06-22] MEDS: FUROSEMIDE 20 MG TABLET PO SCH (14:08)
[2016-06-22] MEDS: ONDANSETRON 4 MG/2 ML VIAL IVP PRN (14:08)
[2016-06-22] MEDS: Levofloxacin 750mg (Premix) 750 MG in Dextrose 1 BAG IV SCH (17:53)
[2016-06-22] MEDS: Zolpidem Tab 5 MG TAB PO PRN (20:24)
[2016-06-22] MEDS: traMADol 50 MG TABLET PO PRN (23:20)
[2016-06-23 06:32] LABS: HEMATOCRIT 37.1 % (37.0-47.0); HEMOGLOBIN 12.6 g/dL (12.0-16.0); MEAN PLATELET VOLUME 9.8 FL (7.4-12.2); RED BLOOD COUNT 4.85 10^6/uL (4.20-5.40)
[2016-06-23 06:47] LABS: BUN/CREATININE RATIO 24.16 (6-20); CALCIUM 9.1 mg/dL (8.7-10.7); SERUM ALBUMIN 3.6 g/dL (3.5-4.8)
[2016-06-23 07:01] LABS: RBC MORPHOLOGY COMMENT NORMAL MORPHOLOGY (NORM); WBC MORPHOLOGY COMMENT NORMAL MORPHOLOGY (NORM)
[2016-06-23 07:02] LABS: BAND NEUTROPHILS % 0 % (0-10); EOSINOPHILS % (MANUAL) 3 % (0-8); LYMPHOCYTES % (MANUAL) 16 % (10-50); MONOCYTES % (MANUAL) 3 % (0-12); NEUTROPHILS % (MANUAL) 76 % (50-80); PLATELET MORPHOLOGY COMMENT SEE COMMENTS (NORM)
[2016-06-23 07:03] LABS: BASOPHILS % (MANUAL) 2 % (0-1)
[2016-06-23] MEDS: POTASSIUM CHLORIDE 20 MEQ TAB PO SCH (07:07)
[2016-06-23] MEDS: FUROSEMIDE 20 MG TABLET PO SCH ×2 (07:07→13:03)
[2016-06-23 07:15] VITALS: RESP 17
[2016-06-23] MEDS: Pantoprazole Inj 40 MG in Normal Saline Flush 10 ML IVP SCH (08:14)
[2016-06-23] MEDS: Apixaban 5 MG TABLET PO SCH (08:15)
[2016-06-23] MEDS ORDERED: METOPROLOL SUCCINATE 25 MG SR 24H TABLET PO SCH (09:00)
[2016-06-23] MEDS ORDERED: METOPROLOL SUCCINATE 100 MG SR 24H TABLET PO SCH (09:00)
--- NOTE | 2016-06-23 10:03 | PTI REPORT ---
Thank you for the referral of Araseli Santiago. She was seen on 06/20/16 for an inpatient evaluation secondary to weakness. SUBJECTIVE: The patient is an 89-year-old female. The patient reports she lives across the street from the hospital independently. 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 The patient reports that she has been getting around her house fine with no assistive device and she reports no major recent falls. She states she has tripped a couple of times during her job at physical therapy. The patient reports that her breathing is getting better and complains of no major pain. PAST MEDICAL HISTORY: Past medical history can be found in the patient's medical record. OBJECTIVE FINDINGS: General observations: The patient was brought down to the therapy gym by occupational therapy. The patient has a catheter in and is on two liters of oxygen. Oxygen saturation: The patient's oxygen saturation was 96% when she entered the physical therapy gym. Ambulation: The patient's gait is slow but steady and requires contact guard assist. Balance: Dynamic balance is fair. Static balance is good. Strength: The patient demonstrated 4-/5 gross bilateral lower extremity strength. Endurance: The patient demonstrates poor endurance. ASSESSMENT: The patient is an 89-year-old female status post episode of pneumonia. The patient is typically very independent and active. The patient would benefit from skilled therapy in order to improve strength, endurance, and overall mobility. The patient's prognosis for therapy is good. Problem List: Decreased strength Decreased endurance Decreased independence Short-Term Goals: To be met by discharge from inpatient: Patient will be independent with all transfers. Patient will ambulate household distances and community distances independently without shortness of breath. Patient will be able to tolerate 30 minutes of activity. Patient will demonstrate 4/5 gross bilateral lower extremity strength. Long-Term Goals: To be met following discharge from inpatient: Patient will be able to return home and perform all ADLs per prior level of function. TREATMENT PLAN: Patient will be seen B.I.D during the week and one time per day over the weekend as an inpatient for therapeutic exercise, functional activity, gait training as needed, and neuromuscular reeducation. INITIAL TREATMENT: Treatment today consisted of the initial evaluation followed by upper body ergometer x5 minutes forward and 2 minutes backward with constant vital monitoring of oxygen saturation and heart rate. Heart rate was 116 beats per minute and oxygen saturation was 96%. The patient ambulated with contact guard assist x1 for line and lead management and for balance all the way from the therapy gym to her room. Once in room the patient was independent with bed mobility. The patient was left in bed with bed alarm activated, two liters of oxygen, and call light within reach. KATHLEEN
--- NOTE | 2016-06-23 10:48 | OTI REPORT ---
Thank you for the referral of Araseli Santiago. She was seen on 06/20/16 for an occupational therapy swallow evaluation. SUBJECTIVE: The patient is an 89-year-old female. The patient and the patient's daughter report that the patient has had swallow issues for approximately 10 years now. Five years ago they did some injections to Araseli's voice box two different times secondary to the weakness that she was experiencing with her voice. The patient's daughter reports that during breakfast with every drink of liquid that the patient has, she demonstrates coughing. They are concerned because the patient has had a history of coughing and she has also had a history of GERD and other esophageal difficulties. The patient states she has acid reflux quite frequently; she is taking medications, but this has been a concern. PAST MEDICAL HISTORY: Past medical history can be found in the patient's medical record. OBJECTIVE FINDINGS: Pre-Swallow Assessment: Alertness and responsiveness: The patient is alert and responsive. Reliable responses: The patient demonstrates reliable yes and no responses. Facial symmetry: The patient demonstrates facial symmetry. Volitional dry swallow: The patient demonstrates a volitional dry swallow. Cough: The patient's cough is weak. Voice: The patient does have a weaker voice that is somewhat raspy. Nutrition and intake method: The patient has been on a regular diet with thin liquids. Oxygen: The patient is on two liters of oxygen. Without oxygen, her oxygen saturation has been dropping to 87%. Secretions: The patient is able to handle her own secretions. Dentition: The patient has her own teeth which are in fair condition. Posture/Tone: The patient has good posture and tone. Tongue range of motion: Tongue range of motion is within normal limits. Buccal range of motion: Buccal range of motion is within normal limits. Sensation: Sensation is normal. Gag reflex: The patient does have an intact gag reflex. General observations: The patient is a very active person for an 89-year-old female. Feeding Assessment: The patient had an intact automatic swallow. Laryngeal elevation is slightly impaired. She has approximately 75% elevation. With pureed liquid, the patient had good bolus control, swallow transit time, laryngeal elevation, and was negative for cough. With mechanical soft food she demonstrated good bolus control and good swallow transit time. Number of swallows was between one and two and laryngeal elevation was fair. She was negative for coughing. With solids the patient is reporting she is having difficulty with bread, rice, and she states meat sometimes feels stuck in her throat. She states she has difficulty clearing these sometimes. She is not necessarily following precautions for GERD. With thin liquids today she did cough a couple of times during swallowing in between foods, but not on a consistent basis. ASSESSMENT: The patient usually takes medications with water. She is able to self feed. There is some coughing and choking present with thin liquids. It is questionable whether or not the patient is protecting her airway. Her swallow appears to be sufficient for adequate PO intake. RECOMMENDATIONS: 1. A modified barium swallow study is recommended. The patient has had a long history of swallowing difficulties per her report and her daughter's report. It would be nice to see how she does in the pharyngeal as well as the esophageal region. Dr. Cotton was informed of the results and recommendations. INITIAL TREATMENT: Treatment today consisted of the swallow evaluation only. KATHLEEN
--- NOTE | 2016-06-23 11:01 | OTI REPORT ---
Thank you for the referral of Araseli Santiago. She was seen on 06/20/16 for a modified barium swallow study. SUBJECTIVE: The patient is an 89-year-old female. The patient and the patient's daughter report that the patient has had swallow issues for approximately 10 years now. Five years ago they did some injections to Araseli's voice box two different times secondary to the weakness that she was experiencing with her voice. The patient's daughter reports that during breakfast with every drink of liquid that the patient has, she demonstrates coughing. They are concerned because the patient has had a history of coughing and she has also had a history of GERD and other esophageal difficulties. The patient states she has acid reflux quite frequently; she is taking medications, but this has been a concern. PAST MEDICAL HISTORY: Past medical history can be found in the patient's medical record. OBJECTIVE FINDINGS: The patient started in the lateral view. Dr. Kim was the radiologist present. Today because of possible concerns with aspiration we did start with a nectar thickened liquid. The patient did well in the oral preparatory phase. In the oral phase her tongue was able to propel the food posteriorly until swallow reflex was triggered. Tongue movement did well with sequential squeezing. The liquid moved in an AP transport. Buccal musculature prevented pocketing. During the pharyngeal phase the reflexive swallow carried the bolus through the pharynx 50% of the time. The swallow reflex was initiated. During the pharyngeal transit time approximately 50% of the bolus appeared to stay within the piriformis sinuses and the valleculae. She had quite a bit of pooling. There was no penetration or aspiration noted at this time. The velum did elevate, retract, and contract the posterior pharyngeal wall completely. There was not material entering the nasal cavity. The hyoid bone did elevate approximately 75%. The larynx elevated and was able to close the true and false vocal cords as well as the epiglottis. Cricopharyngeal sphincter relaxed and pulled the material to pass from the pharynx to the esophagus. She did demonstrate pooling with nectar. We then went to thin liquid. The same sequences happened. The patient did not aspirate with this liquid; however, 50 % of the bolus did stay in the pharyngeal and laryngeal area. She then took mechanical soft peaches. There was no aspiration. Pooling was noted. Then thin liquid to see if aspiration occurred with food and liquid mixed. There was no aspiration noted. The patient was turned to an anterior view. Today we did meat followed by thin liquid. The patient did have approximately 50% of her bolus pooling in the piriformis sinuses. It took two to three swallows to clear the bolus. The patient was instructed to do effortful swallows and this helped with the maneuvers as well. ASSESSMENT: The patient is not demonstrating aspiration; however, she does demonstrate moderate to severe pooling with food and thicker liquid. The patient needed two to three swallows per bolus in order to clear the pharyngeal region. The patient would benefit from skilled occupational therapy to improve her overall swallow strength, to be instructed in a home program, to use compensatory strategies such as effortful swallows and chin tucks, and to follow each bite of food with two to three swallows to clear the pharyngeal region. The patient and her daughter were educated in these precautions and instructions. She may benefit from further outpatient therapy to address her pharyngeal weakness. INITIAL TREATMENT: Treatment today consisted of the modified barium swallow study only. VANESSAD
[2016-06-23 11:51] VITALS: TEMP 98
--- NOTE | 2016-06-23 14:54 | DCSUMMARY ---
Hospitalization Summary Admit Date: 06/19/16 Discharge Date: 06/23/16 Primary Diagnosis:: pneumonia Secondary Diagnosis:: Severe pulmonary hypertension Atrial fibrillation with rapid ventricular response. Hospital Course: This is a very pleasant 89-year-old female that presented with shortness breath , signs and symptoms consistent with pneumonia, and developed atrial fibrillation with rapid ventricular response. She was found to have what looked like a right sided pneumonia on CT scan. She was treated with Levaquin, and did improve. Her heart rate was controlled and below 100 at the time of discharge with increase in metoprolol dose. The patient was noted to have severe pulmonary hypertension, and I think it was decompensated in the setting of this pneumonia. Her Lasix was increased to 20 mg twice daily and her potassium was increased to 40 mg twice daily. She had electrolyte disturbances that were improved prior to discharge including magnesium and potassium. Today, the patient had no complaints of chest pain. She stated that she felt significantly better. Her shortness of breath had significantly improved. Overall, she diuresed 10 pounds during the hospital stay about. No nausea or vomiting today. Assessment and Plan: 1. As per discharge assessments noted 2. Disposition: Patient is discharged home. 3. Condition on discharge, stable and improved. Given severe pulmonary hypertension, overall long-term prognosis may be poor. 4. Diet: regular diet 5. Activities: I told the patient to take it easy for the next 2-3 weeks and hold off on work. 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 6. Follow-Up: 1. Dr. Ma in one week 2. 7. Medications at the Time of Discharge: Home Medications Medication Instructions Recorded Confirmed Type Vit A/Vit C/Vit E/Zinc/Copper 1 each PO BID cap 02/10/13 06/19/16 History [Icaps Areds Softgel] Pantoprazole Sodium [Protonix] 1 tab PO QD PRN #90 tab 07/31/15 06/19/16 Clinic Tramadol HCl 0.5 tab PO Q4-6H PRN #45 tab 03/11/16 06/19/16 Clinic Levothyroxine Sodium 1 tab PO QD #90 tab 05/12/16 06/19/16 Clinic Ferrous Sulfate [High Potency Iron] 1 tab PO QOD #30 tab 06/10/16 06/19/16 Clinic Apixaban [Eliquis] 5 mg PO BID #60 tablet 06/23/16 Rx Bisacodyl EC Tab [Dulcolax Tab] 10 mg PO BID PRN #30 tab 06/23/16 Rx Furosemide [Lasix] 20 mg PO BID@0700,1300 #60 tab 06/23/16 Rx Levofloxacin Tab [Levaquin Tab] 750 mg PO DAILY #2 tablet 06/23/16 Rx Metoprolol Succinate [Toprol XL] 100 mg PO DAILY #30 tab.er.24h 06/23/16 Rx Potassium Chloride [Klor-Con] 40 meq PO BID MEALS #30 tab 06/23/16 Rx 8. Time, care, counseling and coordination of care for this discharge is greater than 30 minutes. Exam - Vitals Vital Signs: Vital Signs Temperature 98 F Temperature Source Temporal Artery Scan Pulse Rate [Telemetry] 116 Pulse Rate [Apical] 102 Pulse Rate [Pulse Oximeter] 95 Pulse Rate 97 Respiratory Rate 17 Blood Pressure [Left Arm] 117/62 Blood Pressure [Right Arm] 141/74 Pulse Ox 92 Oxygen Flow Rate 2 Oxygen Delivery Method Room Air Height 5 ft 2 in Weight 108 lb 9.6 oz - General General Appearance: POSITIVE: No Acute Distress, Cooperative - Head Head Exam: POSITIVE: Atraumatic - Eye Eye Exam: POSITIVE: No Scleral Icterus - Respiratory Respiratory Exam: POSITIVE: Clear to Auscultation - Bilaterally, Breathing Non Labored - Cardiovascular Cardiovascular Exam: POSITIVE: No Murmur, No Clicks, No Gallops, No Rubs, Irregular Rhythm, No JVD - GI/Abdominal GI/Abdominal Exam: POSITIVE: Normal Bowel Sounds, Non Tender, Non Distended, Soft - Extremities Extremities Exam: POSITIVE: No Edema Present, No Cyanosis Present, Clubbing Present - Neurological Neurological Exam: POSITIVE: Alert, Oriented x 3, No Facial Droop, Speech Intact / Clear, Moves All Extremities Equally - Psychiatric Psychiatric Exam: POSITIVE: Normal Affect, Normal Mood Data Perinent Studies: Laboratory Results 06/19/16 06/19/16 06/20/16 Range/Units 14:52 16:49 06:10 WBC 11.19 H 9.17 (4.8-10.8) 10^3/uL RBC 4.98 4.29 (4.20-5.40) 10^6/uL Hgb 12.6 11.2 L (12.0-16.0) g/dL Hct 38.6 33.9 L (37.0-47.0) % MCV 77.5 L 79.0 L (81-99) FL MCH 25.3 L 26.1 L (27-31) PG MCHC 32.6 L 33.0 (33-37) g/dL RDW Std Deviation 55.6 H 55.2 H (39-50) fL RDW Coeff of Min 19.9 H 19.7 H (11.5-14.5) % Plt Count 640 H 462 H (140-350) 10*3/uL MPV 9.7 9.9 (7.4-12.2) FL Immature Gran % (Auto) 1.4 (0-5) % Neut % (Auto) 73.9 (50-80) % Lymph % (Auto) 12.3 (10-50) % Rusk % (Auto) 8.6 (5-15) % Eos % (Auto) 2.5 (0-8) % Baso % (Auto) 1.3 H (0-1) % Immature Gran # (Auto) 0.13 10*3/UL Neut # (Auto) 6.77 10*3/UL Lymph # (Auto) 1.13 10*3/uL Rusk # (Auto) 0.79 (0.3-0.8) 10*3/UL Eos # (Auto) 0.23 10*3/UL Baso # (Auto) 0.12 10*3/UL Neutrophils % (Manual) (50-80) % Band Neutrophils % (0-10) % Lymphocytes % (Manual) (10-50) % Monocytes % (Manual) (0-12) % Eosinophils % (Manual) (0-8) % Basophils % (Manual) (0-1) % Metamyelocytes % Myelocytes % Promyelocytes % Blast Cells WBC Morphology Comment Normal morphology (NORM) Plt Morphology Comment Normal morphology (NORM) RBC Morph Comment Normal morphology (NORM) Sodium 135 134 L (135-145) meq/L Potassium 3.6 L 4.1 (3.8-5.2) meq/L Chloride 96 L 98 (98-112) meq/L Carbon Dioxide 29 29 (23-33) meq/L Anion Gap 10 7 (5-20) BUN 16 13 (7-22) mg/dL Creatinine 0.8 0.7 (0.50-1.20) mg/dL Estimated GFR (>60 ml/min/1.73m(2)) BUN/Creatinine Ratio 20.00 18.57 (6-20) Glucose 108 83 (78-110) mg/dL Calculated Osmolality 281.0 276.0 (267-292) mOsm/kg Calcium 9.4 8.2 L (8.7-10.7) mg/dL Magnesium 1.7 (1.6-2.4) mg/dL Iron (37-170) UG/DL TIBC (265-497) ug/dL % Saturation (14-50) % Total Bilirubin 0.7 0.6 (0.3-1.2) mg/dL AST 31 24 (8-39) IU/L ALT 26 25 (9-52) IU/L Alkaline Phosphatase 83 67 (38-126) IU/L Troponin I 0.010 (< 0.040) ng/mL NT-Pro-B Natriuret Pep 3140 H (0-450) PG/ML Total Protein 7.5 6.0 L (6.1-8.0) g/dL Albumin 4.4 3.4 L (3.5-4.8) g/dL Globulin 3.1 2.6 (2.50-4.10) g/dL Albumin/Globulin Ratio 1.40 1.30 (1.3-2.0) mg/g TSH 2.74 (0.2700-4.2000) uIU/mL 06/20/16 06/21/16 06/22/16 Range/Units Unknown 04:52 10:49 WBC 9.79 14.74 H (4.8-10.8) 10^3/uL RBC 4.47 5.07 (4.20-5.40) 10^6/uL Hgb 11.4 L 13.0 (12.0-16.0) g/dL Hct 34.7 L 38.7 (37.0-47.0) % MCV 77.6 L 76.3 L (81-99) FL MCH 25.5 L 25.6 L (27-31) PG MCHC 32.9 L 33.6 (33-37) g/dL RDW Std Deviation 53.0 H 52.4 H (39-50) fL RDW Coeff of Min 19.3 H 19.4 H (11.5-14.5) % Plt Count 496 H 671 H (140-350) 10*3/uL MPV 10.0 10.3 (7.4-12.2) FL Immature Gran % (Auto) 1.8 (0-5) % Neut % (Auto) 73.0 (50-80) % Lymph % (Auto) 14.9 (10-50) % Rusk % (Auto) 7.4 (5-15) % Eos % (Auto) 2.2 (0-8) % Baso % (Auto) 0.7 (0-1) % Immature Gran # (Auto) 0.18 10*3/UL Neut # (Auto) 7.14 10*3/UL Lymph # (Auto) 1.46 10*3/uL Rusk # (Auto) 0.72 (0.3-0.8) 10*3/UL Eos # (Auto) 0.22 10*3/UL Baso # (Auto) 0.07 10*3/UL Neutrophils % (Manual) 85 H (50-80) % Band Neutrophils % 0 (0-10) % Lymphocytes % (Manual) 6 L (10-50) % Monocytes % (Manual) 8 (0-12) % Eosinophils % (Manual) 1 (0-8) % Basophils % (Manual) 0 (0-1) % Metamyelocytes % Not Reportable Myelocytes % Not Reportable Promyelocytes % Not Reportable Blast Cells Not Reportable WBC Morphology Comment Normal morphology Normal morphology (NORM) Plt Morphology Comment Normal morphology See comments (NORM) RBC Morph Comment Normal morphology Normal morphology (NORM) Sodium 132 L 134 L (135-145) meq/L Potassium 3.7 L 4.9 D (3.8-5.2) meq/L Chloride 97 L 94 L (98-112) meq/L Carbon Dioxide 30 28 (23-33) meq/L Anion Gap 5 12 (5-20) BUN 18 27 H (7-22) mg/dL Creatinine 0.8 1.2 (0.50-1.20) mg/dL Estimated GFR (>60 ml/min/1.73m(2)) BUN/Creatinine Ratio 22.50 H 22.50 H (6-20) Glucose 81 95 (78-110) mg/dL Calculated Osmolality 274.0 282.0 (267-292) mOsm/kg Calcium 8.1 L 9.1 (8.7-10.7) mg/dL Magnesium 2.0 1.8 (1.6-2.4) mg/dL Iron 31 L (37-170) UG/DL TIBC 332 (265-497) ug/dL % Saturation 9.34 L (14-50) % Total Bilirubin 0.6 0.6 (0.3-1.2) mg/dL AST 24 26 (8-39) IU/L ALT 23 20 (9-52) IU/L Alkaline Phosphatase 63 74 (38-126) IU/L Troponin I (< 0.040) ng/mL NT-Pro-B Natriuret Pep (0-450) PG/ML Total Protein 5.9 L 6.6 (6.1-8.0) g/dL Albumin 3.3 L 3.9 (3.5-4.8) g/dL Globulin 2.6 2.7 (2.50-4.10) g/dL Albumin/Globulin Ratio 1.20 L 1.40 (1.3-2.0) mg/g TSH (0.2700-4.2000) uIU/mL 06/23/16 Range/Units 06:08 WBC 12.05 H (4.8-10.8) 10^3/uL RBC 4.85 (4.20-5.40) 10^6/uL Hgb 12.6 (12.0-16.0) g/dL Hct 37.1 (37.0-47.0) % MCV 76.5 L (81-99) FL MCH 26.0 L (27-31) PG MCHC 34.0 (33-37) g/dL RDW Std Deviation 53.3 H (39-50) fL RDW Coeff of Min 19.4 H (11.5-14.5) % Plt Count 573 H (140-350) 10*3/uL MPV 9.8 (7.4-12.2) FL Immature Gran % (Auto) (0-5) % Neut % (Auto) (50-80) % Lymph % (Auto) (10-50) % Rusk % (Auto) (5-15) % Eos % (Auto) (0-8) % Baso % (Auto) (0-1) % Immature Gran # (Auto) 10*3/UL Neut # (Auto) 10*3/UL Lymph # (Auto) 10*3/uL Rusk # (Auto) (0.3-0.8) 10*3/UL Eos # (Auto) 10*3/UL Baso # (Auto) 10*3/UL Neutrophils % (Manual) 76 (50-80) % Band Neutrophils % 0 (0-10) % Lymphocytes % (Manual) 16 (10-50) % Monocytes % (Manual) 3 (0-12) % Eosinophils % (Manual) 3 (0-8) % Basophils % (Manual) 2 H (0-1) % Metamyelocytes % Not Reportable Myelocytes % Not Reportable Promyelocytes % Not Reportable Blast Cells Not Reportable WBC Morphology Comment Normal morphology (NORM) Plt Morphology Comment See comments (NORM) RBC Morph Comment Normal morphology (NORM) Sodium 132 L (135-145) meq/L Potassium 4.7 (3.8-5.2) meq/L Chloride 93 L (98-112) meq/L Carbon Dioxide 30 (23-33) meq/L Anion Gap 9 (5-20) BUN 29 H (7-22) mg/dL Creatinine 1.2 (0.50-1.20) mg/dL Estimated GFR (>60 ml/min/1.73m(2)) BUN/Creatinine Ratio 24.16 H (6-20) Glucose 88 (78-110) mg/dL Calculated Osmolality 278.0 (267-292) mOsm/kg Calcium 9.1 (8.7-10.7) mg/dL Magnesium (1.6-2.4) mg/dL Iron (37-170) UG/DL TIBC (265-497) ug/dL % Saturation (14-50) % Total Bilirubin 0.6 (0.3-1.2) mg/dL AST 21 (8-39) IU/L ALT 21 (9-52) IU/L Alkaline Phosphatase 66 (38-126) IU/L Troponin I (< 0.040) ng/mL NT-Pro-B Natriuret Pep (0-450) PG/ML Total Protein 6.1 (6.1-8.0) g/dL Albumin 3.6 (3.5-4.8) g/dL Globulin 2.5 (2.50-4.10) g/dL Albumin/Globulin Ratio 1.40 (1.3-2.0) mg/g TSH (0.2700-4.2000) uIU/mL Patient Problems - Patient Problem List (1) Pneumonia Current Visit: No Status: Acute Qualifiers: Pneumonia type: due to unspecified organism Laterality: right Lung location: upper lobe of lung Qualified Description: Pneumonia of right upper lobe due to infectious organism Qualifier Code(s): (J18.1) Lobar pneumonia, unspecified organism (2) Atrial fibrillation Current Visit: Yes Status: Acute Qualifiers: Atrial fibrillation type: chronic Qualified Description: Chronic atrial fibrillation Qualifier Code(s): (I48.2) Chronic atrial fibrillation (3) Pulmonary HTN Current Visit: Yes Status: Acute (4) Hypokalemia Current Visit: Yes Status: Acute
--- NOTE | 2016-06-23 15:35 | PT.PROG ---
Progress Note Progress Note: S. Patient stated that she is feeling nauseous this morning. O. Patient ambulated 175 feet to the therapy gym where she used the nu-step x5 minutes and the arm bike x 5 minutes. Patient ambulated 175 feet back to her room where she was left in bed with alarm and call light. A. Patient was unable to perform more exercises due to nausea and fatigue. She would continue to benefit from skilled therapy to increase endurance at this time. P. continue POC.
--- NOTE | 2016-06-23 15:38 | OT.PROG ---
Progress Note Progress Note: S:pt was seen downstairs in therapy after physical therapy services. pt reports she is going home today so she does not want to do alot O: pt completed the arm bike 3/3 forwards/backards and red theraband exercises 10 reps in all directions. pt is able to tolerate ambulation up and downstairs. A: pt is doing well although becomes fatigued after 20 minutes of activitiy. P: we will continue to see pt, unless she is discharged today,.
--- NOTE | 2016-06-23 15:45 | PT.PROG ---
Progress Note Progress Note: S. Patient stated she is feeling much better this afternoon, compared to this morning. O. Patient ambulated 175 feet to the therapy gym where she used the nu-step x 10 minutes then the arm bike x 8 minutes. Patient ambulated 175 feet back to her room where she was left in chair with nursing. A. Patient was fatigued after ambulation to the therapy gym and required a short seated rest break before continuing with exercises, she was able to tolerate longer duration on cardio exercises. Patient would continue to benefit from skilled therapy to increase endurance and strength. P. Continue POC.
--- NOTE | 2016-06-24 15:36 | OT AM DAY ---
Diagnosis : Weakness AM - Occupational Therapy S: The patient reports that she is not necessarily liking the mechanical soft diet but she has not had any coughing or choking since she has been on it. Functionally she states she is doing a lot better. O: The therapist thoroughly encouraged the patient to make her food softer, to chop her meats up smaller, and to put gravy on any meats when at home. We discussed foods with Araseli as well as her daughter who will be helping her out for a little bit once she returns home. We also discussed how to make and prepare mechanical soft foods. The patient came down with OT to work on swallow strengthening activities including tongue based gargling, yawning, Dewayne, effortful swallow, super glottic swallow, Rachel maneuver, and epiglottic control. We also went through falsettos with the letter E. A: The patient is demonstrating a weaker voice box. She had difficulty with the Dewayne maneuver as well as the Rachel maneuvers; however, she demonstrated independence with the other activities. She definitely would continue to benefit from swallow strengthening. She is demonstrating pharyngeal weakness per the modified barium swallow study as well as functional weakness. P: Continue seeing patient BID during the week and one time per day over the weekend until discharge. KATHLEEN
== END 2016-06-23 16:11 | disposition home or self-care (01) | DRG 195 ==
LOC: MED/SURG 14:22
PROVIDERS: ADMIT Internal Medicine; ATTEND Internal Medicine
DX: J18.9 Pneumonia, unspecified organism (principal); I27.2 Other secondary pulmonary hypertension; I48.91 Unspecified atrial fibrillation; E87.6 Hypokalemia; D72.829 Elevated white blood cell count, unspecified; I50.9 Heart failure, unspecified
CPT/HCPCS: 36415; 71250; 71260; 74177; 74220; 80053; 83540; 83550; 83735; 83880; 84443; 84484; 85007; 85025; 85027; 93005; 93010; 93306; 94761; 97110; 97162; 97530; 97750; J1940; J2060; J2405; J3420; J3475; J3490; J7050

== ENCOUNTER → 2016-06-19 | Outpatient (CLI) | payer OTHER | LOC: MMPC 09:00 | DX: R06.02 Shortness of breath (principal); I27.2 Other secondary pulmonary hypertension; E03.9 Hypothyroidism, unspecified; D47.1 Chronic myeloproliferative disease; D68.51 Activated protein C resistance; I10 Essential (primary) hypertension | CPT/HCPCS: 99213; G0463 ==

== ENCOUNTER → 2016-07-02 | Outpatient (CLI) | payer OTHER | LOC: MMPC 09:00 | DX: I27.2 Other secondary pulmonary hypertension (principal); I48.1 Persistent atrial fibrillation; E03.9 Hypothyroidism, unspecified; I10 Essential (primary) hypertension; D47.1 Chronic myeloproliferative disease; D68.51 Activated protein C resistance; M81.0 Age-related osteoporosis without current pathological fracture | CPT/HCPCS: 99213; G0463 ==

== ENCOUNTER → 2016-07-08 | Outpatient (CLI) | payer OTHER ==
[2016-07-08 08:35] LABS: CALCIUM 9.1 mg/dL (8.7-10.7)
== END ==
LOC: LAB 08:01
DX: I27.2 Other secondary pulmonary hypertension (principal)
CPT/HCPCS: 36415; 80048